=== PATIENT | male | born 1995 | race African-American/Black ===

== ENCOUNTER 2016-12-10 14:08 | Emergency (ER) | payer OTHER ==
[~2016-12-10] VITALS: Ht 177.8 cm; Wt 108.9 kg
[2016-12-10 14:08] VITALS: BP 161/79
[2016-12-10] MEDS ORDERED: cefTRIAXone SOD 250 MG VIAL (J0696) IM ONE (15:30)
[2016-12-10] MEDS ORDERED: AZITHROMYCIN 250 MG TAB PO ONE (15:30)
[2016-12-10] MEDS ORDERED: LIDOCAINE 1% MDV 20ML VIAL As Ordered ONE (15:44)
== END 2016-12-10 16:15 | disposition home or self-care (01) ==
LOC: M ED 15:26
DX: Z11.3 Encounter for screening for infections with a predominantly sexual mode of transmission (principal)
CPT/HCPCS: 87491; 87591; 96372; 99282; J0696

== ENCOUNTER 2017-03-16 21:08 | Emergency (ER) | payer OTHER ==
[~2017-03-16] VITALS: Ht 177.8 cm; Wt 112.8 kg
[2017-03-16] MEDS ORDERED: ROBA500T PO (21:56)
[2017-03-16] MEDS ORDERED: IBUP-1022 PO (21:56)
[2017-03-16] MEDS ORDERED: KETOROLAC 60 MG/2 ML VIAL (J1885) IM ONE (22:00)
[2017-03-16 22:32] VITALS: BP 136/74
== END 2017-03-16 22:33 | disposition home or self-care (01) ==
LOC: M ED 21:08
DX: M62.830 Muscle spasm of back (principal)
CPT/HCPCS: 96372; 99282; J1885; J3360

== ENCOUNTER 2017-12-26 14:05 | Emergency (ER) | payer OTHER ==
[2017-12-26] MEDS ORDERED: LIDOCAINE 1% MDV 20ML VIAL As Ordered (15:00)
[2017-12-26] MEDS: AZITHROMYCIN 250 MG TAB PO (15:12)
[2017-12-26] MEDS: cefTRIAXone SOD 250 MG VIAL (J0696) IM (15:12)
[2017-12-26 15:20] LABS: KETONE, URINE AUTO RFX NEGATIVE (NEGATIVE); LEUKOCYTE ESTERASE UR AUTO RFX NEGATIVE (NEGATIVE); NITRITE, URINE AUTO RFX NEGATIVE (NEGATIVE); RBC, URINE AUTO RFX 1 /HPF (0-3); SPECIFIC GRAVITY UR AUTO RFX 1.017 (1.002-1.035); SQUAM EPITHELIAL CELL UR AURFX 0 /HPF (0-6); WBC, URINE AUTO RFX 0 /HPF (0-3)
[2017-12-26 15:53] LABS: HEPATITIS B SURFACE ANTIBODY NEGATIVE (POSITIVE)
[2017-12-26 16:04] LABS: HEPATITIS B SURFACE ANTIGEN NEGATIVE (NEGATIVE)
[2017-12-26 16:32] LABS: HIV 1&2 SCREEN CENTAUR NEGATIVE (NEGATIVE)
[2017-12-26 16:32] LABS: HEPATITIS C VIRUS ABY INDEX < 0.0 INDEX (<0.8)
[2017-12-26 16:50] LABS: CHLAMYDIA DNA AMPLIFICATION NEGATIVE (NEGATIVE); GC DNA AMPLIFICATION NEGATIVE (NEGATIVE)
== END 2017-12-26 16:55 | disposition home or self-care (01) ==
LOC: M ED 14:05
DX: B37.9 Candidiasis, unspecified (principal); N50.89 Other specified disorders of the male genital organs; I86.1 Scrotal varices
CPT/HCPCS: J0696